=== PATIENT | male | born 1940 | race Caucasian/White ===

== ENCOUNTER 2017-10-30 09:33 | Emergency (ER) | payer OTHER ==
[~2017-10-30] VITALS: Ht 166.4 cm; Wt 93.0 kg
[~2017-10-30 09:33] MED LIST: KEFLEX 250MG C250 MG PO
--- NOTE | 2017-10-30 11:11 | ED UPPER/LOWER EXTREMITY COMPL ---
History of Present Illness General Chief Complaint: Lower Extremity Problems Stated Complaint: TWO WEEKS POST-OP KNEE REPLACEMENT WITH FEVER Source: patient Exam Limitations: no limitations Vital Signs & Intake/Output Vital Signs & Intake/Output Vital Signs Date Time Temp Pulse Resp B/P B/P Pulse O2 O2 Flow FiO2 Mean Ox Delivery Rate 10/30 1607 99.8 69 18 145/67 95 Room Air 10/30 1300 98.7 66 16 130/60 95 Room Air Room Air 10/30 1054 99.0 74 130/66 10/30 1023 99.0 70 18 131/75 96 Room Air 10/30 0935 98.3 63 20 132/62 95 Room Air Allergies Coded Allergies: NO KNOWN ALLERGIES (12/16/13) Reconcile Medications Atorvastatin Calcium 80 MG TABLET 1 TAB PO DAILY CHOLESTEROL (Reported) Celecoxib 200 MG CAPSULE 1 CAP PO DAILY PAIN (Reported) Cephalexin (Keflex) 500 MG CAPSULE 1 CAP PO TID PRN CELLULITIS Citalopram Hydrobromide (Citalopram HBr) 20 MG TABLET 1 TAB PO DAILY MENTAL HEALTH (Reported) Levothyroxine Sodium 137 MCG TABLET 1 TAB PO DAILY AC THYROID (Reported) Losartan/Hydrochlorothiazide (Losartan-Hctz 100-25 MG Tab) 100 MG-25 MG TABLET 1 TAB PO DAILY HEART (Reported) Metoprolol Succinate 50 MG TAB.ER.24H 1 TAB PO DAILY HEART (Reported) Rivaroxaban (Xarelto) 10 MG TABLET 1 TAB PO DAILY BLOOD THINNER (Reported) Ropinirole HCl 1 MG TABLET 1 TAB PO QPM RESTLESS LEGS (Reported) Sulfamethoxazole/Trimethoprim (Bactrim Ds Tablet) 800 MG-160 MG TABLET 1 TAB PO BID CELLULITIS Triage Note: BIBA FROM HOME S/P RIGHT KNEE REPLACEMENT X 2WEEKS. PT C/O FEVER LAST NIGHT. AFEBRILE AT THIS TIME. HARD RED LUMP NOTED ON RIGHT UPPER THIGH. DRESSING ON RIGHT KNEE IN PLACE. DRESSING CLEAN AND DRY. Triage Nurses Notes Reviewed? yes Onset: Gradual Duration: getting worse Timing: recent history Severity: moderate Severity Numbers: 5 HPI: Patient is a 77-year-old male with a past medical history of hypertension, hypothyroidism, CAD, remote history of CABG, and a total knee replacement performed on 10/16/[address] [facility] [address] CHAPMAN in which patient states that over the weekend he began developing tactile fevers and chills Nursing care did evaluate patient on Monday surgical site looked well then however family noted redness to his right upper leg region however the surgical site was not inspected until patient arrived to the emergency room. Patient had a family member make surgical pen marking borders 4 erythema to the right inner thigh which has expanded beyond the borders since placed on Monday (Jef Bowers) Past History Travel History Traveled to [place] past 21 day No Medical History Any Pertinent Medical History? see below for history Cardiovascular: hypertension, hyperlipidemia Musculoskeletal: RESTLESS LEG SYNDROME Tetanus Vaccine: 12/16/13 Surgical History Surgical History: non-contributory Psychosocial History What is your primary language Polish Tobacco Use: Never used ETOH Use: denies use Illicit Drug Use: denies illicit drug use Family History Hx Contributory? No (Jef Bowers) Review of Systems Review of Systems Constitutional: Reports: see HPI, fever. EENTM: Reports: no symptoms. Respiratory: Reports: no symptoms. Cardiovascular: Reports: no symptoms. Gastrointestinal/Abdominal: Reports: no symptoms. Genitourinary: Reports: no symptoms. Musculoskeletal: Reports: see HPI. Skin: Reports: see HPI, erythema. Neurological/Psychological: Reports: no symptoms. Hematologic/Endocrine: Reports: no symptoms. Immunological: Reports: no symptoms. All Other Systems: Reviewed and Negative (Jef Bowers) Physical Exam Physical Exam General Appearance: no apparent distress, alert, comfortable Head: atraumatic Eyes: Bilateral: normal appearance. Ears, Nose, Throat: hearing grossly normal Neck: normal inspection Cardiovascular/Respiratory: no respiratory distress Neurologic/Tendon: normal sensation, normal motor functions, normal tendon functions, responds to pain, no evidence tendon injury, no pulse deficit Skin: intact Diagram Legs Front/Back 1) Noted sagittal incision with intact neftaly with noted surrounding erythema warmth and point tenderness no active discharge 2) Noted erythema and point tenderness with a 4 cm mildly tender induration (Jef Bowers) Progress Differential Diagnosis: arterial insufficiency, cellulitis, compartment syndrome , contusion, dislocation, DVT, fracture, gout, septic arthritis, sprain, tendon injury Diagnostic Imaging: Viewed by Me: Ultrasound. Radiology Impression: acute abnormality Comments: PATIENT: ADITHYA NIETO PRESENT AGE: 77 PATIENT ACCOUNT NO: [id number] : 39 LOCATION: [facility] ORDERING PHYSICIAN: Jef FIGUEROA SERVICE DATE: 04/30/18-1151 EXAM TYPE: RAD - XRY-KNEE COMPLETE RIGHT EXAMINATION: XR KNEE, RIGHT CLINICAL INFORMATION: Status post right knee replacement COMPARISON: None TECHNIQUE: Four views of the right knee. FINDINGS: There are typical postoperative findings after knee replacement surgery. Anterior skin neftaly, anterior soft tissue edema and small joint effusion are noted. The components of the total knee arthroplasty are in satisfactory position. Alignment is normal at the patellofemoral and tibiofemoral compartments. No fracture, osteolysis or hardware loosening. IMPRESSION: There are expected postoperative findings from a recent right total knee arthroplasty. No evidence of osteolysis or fracture around the hardware. DICTATED BY: Chris Strong MD DATE/TIME DICTATED:10/30/171325 RUBBER PRODUCTION MACHINE OPERATOR:LAMAR DATE/TIME TRANSCRIBED:10/30/171325 (Jef Bowers) Plan of Care: Orders Procedure Date/time Status EXTREMETIES CULTURE 10/30 1647 Active LACTIC ACID 10/30 1429 Complete BLOOD CULTURE 10/30 1129 Active LACTIC ACID 10/30 1129 Complete COMPREHENSIVE METABOLIC PANEL 10/30 1129 Complete CBC WITHOUT DIFFERENTIAL 10/30 1129 Complete Current Medications Sig/Luly Start time Last Medication Dose Stop Time Status Admin Sodium Chloride 1,000 ML ONCE ONE 10/30 1130 AC 10/30 (Normal Saline 0.9%) 10/30 1809 1214 Laboratory Tests 10/30/17 1611: Lactic Acid 1.2 10/30/17 1100: Anion Gap 14, Estimated GFR 59 L, BUN/Creatinine Ratio 20.8, Glucose 108 H, Lactic Acid 1.3, Calcium 9.3, Total Bilirubin 0.7, AST 19, ALT 33, Alkaline Phosphatase 79, Total Protein 7.3, Albumin 4.1, Globulin 3.2, Albumin/Globulin Ratio 1.3, CBC w Diff NO MAN DIFF REQ, RBC 3.04 L, MCV 93.8, MCH 32.5 H, MCHC 34.7, RDW 13.4, MPV 6.5 L, Gran % 79.2 H, Lymphocytes % 11.9 L, Monocytes % 6.1, Eosinophils % 2.4, Basophils % 0.4, Absolute Granulocytes 10.9 H, Absolute Lymphocytes 1.6, Absolute Monocytes 0.8 H, Absolute Eosinophils 0.3, Absolute Basophils 0.1 Microbiology 10/30 1655 EXTREMITIE: Culture & Sensitivity - RECD 10/30 1655 EXTREMITIE: Gram Stain - RECD 10/30 1120 BLOOD: Blood Culture - RECD 10/30 1100 BLOOD: Blood Culture - RECD Patient upon initial examination has concerns of cellulitis and infection of the right knee at the surgical site, I discussed PT'S physical exam findings and history of present illness AND my concerns of infection and cellulitis to the surgical site with the orthopedic doctor, DR CHAPMAN who was aware of patient's condition and advised patient to be given outpatient Keflex and to follow up in office tomorrow. Prior to my discussion with the orthopedic doctor the ultrasound had not been resulted Ultrasound was resulted no concerns of DVT however there was a nonspecific fluid collection and due to patient's localization of erythema and the fluid collection that an incision and drainage was performed in the emergency room to the right upper inner thigh, Using sterile technique of chlorhexidine I then used approximate 5 mL of 1% lidocaine for local anesthesia I then used a 15 blade scalpel and made a 1 cm incision in which clear discharge was excised Patient tolerated well culture was obtained gauze and Tegaderm were applied Discussed this plan with Dr. Gonzalez who was aware Patient has a appointment tomorrow made at 2:30 for follow-up with DR CHAPMAN (Jef Bowers) Comments: Given the appearance of the knee I doubt septic arthritis. I feel this patient 's clinical presentation is more consistent with a surgical wound infection with ascending lymphadenitis. (Lisa THOMAS,Anderson Wagner) Departure Departure Disposition: HOME OR SELF CARE Condition: Stable Clinical Impression Primary Impression: Cellulitis Secondary Impressions: Abscess, Infection of prosthetic knee joint Referrals: Ernesto THOMAS,Alvino Castañeda (PCP/Family) Additional Instructions: As discussed follow-up with your ESTABLISHED orthopedic doctor tomorrow YOU HAVE an appointment., please begin the prescription of Keflex AND BACTRIM as directed, prescription is waiting AT [facility], if symptoms worsen or you develop any new concerning symptoms return to emergency room, The bandage has been applied in the emergency room, if this FALLS OFF, Please reapply with extra bandages provided to you, Please provide the orthopedic doctor with copies of blood work and imaging provided to you Departure Forms: Customer Survey General Discharge Information Prescriptions: Current Visit Scripts Cephalexin (Keflex) 1 CAP PO TID PRN CELLULITIS #21 CAP Sulfamethoxazole/Trimethoprim (Bactrim Ds Tablet) 1 TAB PO BID #20 TAB (Jef Bowers) PA/TOOL DRESSER Co-Sign Statement Statement: ED Attending supervision documentation- [X] I saw and evaluated the patient. I have also reviewed all the pertinent lab results and diagnostic results. I agree with the findings and the plan of care as documented in the PA's/TOOL DRESSER's documentation. Patient presents for evaluation of a fever and redness of the right knee surgical site status post knee replacement. Physical examination reveals erythema surrounding the superior aspect of the patient's surgical wound with small amounts of pus where the neftaly penetrate the skin. [] I have reviewed the ED Record and agree with the PA's/TOOL DRESSER's documentation. [] Additions or exceptions (if any) to the PAs/TOOL DRESSER's note and plan are summarized below: [] (Lisa THOMAS,Anderson Wagner)
[2017-10-30 11:43] LABS: ABSOLUTE BASOPHIL COUNT 0.1 /CUMM (0.0-0.2); ABSOLUTE EOSINOPHIL COUNT 0.3 /CUMM (0.0-0.7); ABSOLUTE GRANULOCYTE CT 10.9 /CUMM (1.4-6.5); ABSOLUTE LYMPH COUNT 1.6 /CUMM (1.2-3.4); ABSOLUTE MONOCYTE COUNT 0.8 /CUMM (0.10-0.60); BASOPHIL % 0.4 % (0.0-2.0); EOSINOPHIL % 2.4 % (0-5); GRANULOCYTE % 79.2 % (42.2-75.2); HEMATOCRIT 28.5 % (42-52); MEAN CORPUSCULAR HGB 32.5 PG (27.0-31.0); MEAN CORPUSCULAR HGB CONC 34.7 G/DL (33.0-37.0); MEAN CORPUSCULAR VOLUME 93.8 FL (80.0-94.0); MEAN PLATELET VOLUME 6.5 FL (7.4-10.4); PLATELET COUNT 408 /CUMM (130-400); RBC DISTRIBUTION WIDTH 13.4 % (11.5-14.5); RED BLOOD CELL CT 3.04 /CUMM (4.70-6.10); WHITE BLOOD CELL COUNT 13.8 /CUMM (4.8-10.8)
[2017-10-30] MEDS ORDERED: ATORVASTATIN CA80 M1 PO (13:18)
[2017-10-30] MEDS ORDERED: CITALOPRAM HBR20 MG PO (13:19)
[2017-10-30] MEDS ORDERED: METOPROLOL SUCC50 M2 PO (13:19)
[2017-10-30] MEDS ORDERED: ROPINIROLE HCL1 MG PO (13:19)
[2017-10-30] MEDS ORDERED: LEVOTHYROXINE137 MCG PO (13:19)
[2017-10-30] MEDS ORDERED: LOSARTAN-HCTZ1 EAC2 PO (13:19)
[2017-10-30] MEDS ORDERED: XARELTO10 M2 PO (13:20)
[2017-10-30] MEDS ORDERED: CELECOXIB200 M1 PO (13:21)
--- NOTE | 2017-10-30 13:32 | RADIOLOGY REPORT ---
EXAMINATION: XR KNEE, RIGHT CLINICAL INFORMATION: Status post right knee replacement COMPARISON: None TECHNIQUE: Four views of the right knee. FINDINGS: There are typical postoperative findings after knee replacement surgery. Anterior skin neftaly, anterior soft tissue edema and small joint effusion are noted. The components of the total knee arthroplasty are in satisfactory position. Alignment is normal at the patellofemoral and tibiofemoral compartments. No fracture, osteolysis or hardware loosening. IMPRESSION: There are expected postoperative findings from a recent right total knee arthroplasty. No evidence of osteolysis or fracture around the hardware.
--- NOTE | 2017-10-30 15:22 | ULTRASOUND REPORT ---
EXAMINATION: US TRIPLEX LOWER EXTREMITY, RIGHT CLINICAL INFORMATION: Right lower extremity swelling. Right knee replacement 2 weeks ago. COMPARISON: No relevant prior imaging. TECHNIQUE: Color-flow triplex imaging with spectral analysis and compression Doppler were performed on the lower extremity. FINDINGS: The visualized common femoral vein, superficial femoral vein, profunda femoral vein, popliteal vein and midcalf peroneal and posterior tibial venous segments show no evidence of deep venous thrombosis. Incidentally there is a fluid collection at the medial aspect of the proximal right lower extremity that measures 1.3 x 1.2 x 1.2 cm. There is no Bansal's cyst. IMPRESSION: Incidentally there is a rounded 1.3 cm fluid collection along the medial aspect of the proximal right lower extremity, the etiology of which is uncertain. Otherwise normal triplex scan of the right lower extremity without evidence of deep venous thrombosis.
[2017-10-30] MEDS ORDERED: KEFLEX500 M1 PO (16:56)
[2017-10-30] MEDS ORDERED: BACTRIM DS TAB1 EACH PO (17:13)
[2017-10-30 18:37] VITALS: BP 146/71
== END 2017-10-30 18:40 ==
LOC: ERH 09:33
PROVIDERS: Emergency Medicine
DX: T84.53XA Infection and inflammatory reaction due to internal right knee prosthesis, initial encounter (principal); L02.415 Cutaneous abscess of right lower limb; I10 Essential (primary) hypertension; Y83.8 Other surgical procedures as the cause of abnormal reaction of the patient, or of later complication, without mention of misadventure at the time of the procedure
CPT/HCPCS: 73562-RT; 87040; 87070; 96374; J0696; J2001